=== PATIENT | male | born 1985 ===

== ENCOUNTER 2016-10-28 20:00 | Emergency (ER) | payer BC, OTHER ==
[2016-10-28 20:14] VITALS: BP 145/101
--- NOTE | 2016-10-28 20:50 | EDM.PDOC ---
ED HPI GENERAL MEDICAL PROBLEM - General Chief Complaint: Abdominal Pain Stated Complaint: ABDOMINAL PAINS DIARRHEA Time Seen by Provider: 10/28/16 20:26 Source of Information: Reports: Patient, RN Notes Reviewed History Limitations: Reports: No Limitations - History of Present Illness INITIAL COMMENTS - FREE TEXT/NARRATIVE: The patient states that he was prescribed Augmentin twice a day for 5 days about 3 weeks ago for a possible facial infection, per the [facility]. He developed watery diarrhea on the third day. Since then, his stools have become soft, and less watery. He states that he called the clinic this past Friday, and was told to drink plenty of fluids. That same evening he developed sharp upper abdominal pain, which has been on and off since. He now presents to the ED because of the concern of possible blood in his stool. He states that the stool itself was light colored, but it looked like there was some ground up meat in the stool. He did not have any blood on the toilet paper or in the water. He has had nausea today, but no emesis. No fever. No urinary symptoms. No prior similar symptoms. No one in the patient's household or at work have similar symptoms. No recent spoiled food. No recent travel. The patient does not have a PCP. Abdominal Pain Score (Numeric/FACES): 5 - Related Data Allergies Allergy/AdvReac Type Severity Reaction Status Date / Time No Known Allergies Allergy Verified 10/28/16 20:06 Past Medical History - Past Surgical History GI Surgical History: Reports: Appendectomy Dermatological Surgical History: Reports: Other (See Below) (Dog mauling injuries on the back, repaired) Social & Family History - Tobacco Use Smoking Status *Q: Current Some Day Smoker Years of Tobacco use: 12 Packs/Tins Daily: 0.1 - Caffeine Use Caffeine Use: Reports: Coffee, Energy Drinks - Alcohol Use Alcohol Use History: Yes Alcohol Use Frequency: Socially - Recreational Drug Use Recreational Drug Use: No - Living Situation & Occupation Living situation: Reports: Single, with Family 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) ED ROS GENERAL - Review of Systems Review Of Systems: See Below Constitutional: Reports: No Symptoms HEENT: Reports: No Symptoms Respiratory: Reports: No Symptoms Cardiovascular: Reports: No Symptoms Endocrine: Reports: No Symptoms GI/Abdominal: Reports: No Symptoms : Reports: No Symptoms Musculoskeletal: Reports: No Symptoms Skin: Reports: No Symptoms Neurological: Reports: No Symptoms Psychiatric: Reports: No Symptoms Hematologic/Lymphatic: Reports: No Symptoms Immunologic: Reports: No Symptoms ED EXAM, GI/ABD - Physical Exam Exam: See Below Exam Limited By: No Limitations General Appearance: Alert, WD/WN, No Apparent Distress Eyes: Bilateral: Normal Appearance, EOMI Ears: Normal External Exam, Hearing Grossly Normal, Normal TMs Nose: Normal Inspection, No Blood Throat/Mouth: Normal Inspection, Normal Lips, Normal Voice, No Airway Compromise Head: Atraumatic, Normocephalic Neck: Normal Inspection, Full Range of Motion Respiratory/Chest: No Respiratory Distress, Lungs Clear, Normal Breath Sounds, No Accessory Muscle Use Cardiovascular: Normal Peripheral Pulses, Regular Rate, Rhythm, No Edema, No Gallop, No JVD, No Murmur, No Rub GI/Abdominal: Normal Bowel Sounds, Soft, Non-Tender, No Organomegaly, No Distention, No Abnormal Bruit, No Mass (Male) Exam: Deferred Rectal (Males) Exam: Normal Exam, Normal Rectal Tone, Prostate Normal, Heme - Stool Back Exam: Normal Inspection, Full Range of Motion, NT Extremities: Normal Inspection, Normal Range of Motion, No Pedal Edema, Normal Capillary Refill Neurological: Alert, Oriented, Normal Cognition, No Motor/Sensory Deficits Psychiatric: Normal Affect Skin Exam: Warm, Dry, Intact, Normal Color, No Rash Lymphatic: No Adenopathy Course - Vital Signs Last Recorded V/S: Last Vital Signs Temp 37.4 C 10/28/16 20:07 Pulse 93 10/28/16 20:07 Resp 16 10/28/16 20:07 BP 145/101 H 10/28/16 20:07 Pulse Ox 97 10/28/16 20:07 - Re-Assessments/Exams Free Text/Narrative Re-Assessment/Exam: 10/28/16 20:45 The patient has soft stools, not diarrhea, therefore C. difficile is not a possibility. He is heme-negative on rectal examination. His symptoms may be due to his diet, stress or anxiety, or potentially other gastroenterologic etiologies. I am recommending that if his symptoms persist, that he follow-up with Dr. Sky to arrange for a colonoscopy. Departure - Departure Time of Disposition: 20:47 Disposition: Home, Self-Care 01 Condition: Good Clinical Impression: Loose bowel movements, Abdominal cramps - Discharge Information Instructions: Diarrhea, Adult Referrals: PCP,None [Primary Care Provider] - Marilyn Sky MD [Physician] - Forms: ED Department Discharge Additional Instructions: You were seen in the emergency room for loose bowel movements for the past 3 weeks, abdominal cramps, and a concern of possible blood in your stool today. On examination, there is no blood in your stool. Your loose bowel movements and abdominal pain may be due to an overactive colon. You may take [id number] loperamide (Imodium), 2 tablets initially, then 1 tablet after each loose bowel movement, to a maximum of 8 tablets within a 24- hour period. Consider increasing fiber in your diet. Stay well hydrated. If your symptoms persist, please follow-up with the surgeon Dr. Marilyn Sky for a possible colonoscopy. If any other problems, please do not hesitate to return to the ER.
== END 2016-10-28 21:15 | disposition home or self-care (01) ==
LOC: JD.ED 20:00
DX: R19.7 Diarrhea, unspecified (principal); F17.210 Nicotine dependence, cigarettes, uncomplicated; Z90.49 Acquired absence of other specified parts of digestive tract
CPT/HCPCS: 99282; 99284

== ENCOUNTER 2016-11-02 06:05 | Emergency (ER) | payer BC, OTHER ==
[2016-11-02] MEDS ORDERED: Sodium Chloride 0.9% 1,000 ML IV SCH (07:15)
--- NOTE | 2016-11-02 07:35 | EDM.PDOC ---
ED HPI GENERAL MEDICAL PROBLEM - General Chief Complaint: Abdominal Pain Stated Complaint: STOMACH PAIN Time Seen by Provider: 11/02/16 07:00 Source of Information: Reports: Patient, RN Notes Reviewed History Limitations: Reports: No Limitations - History of Present Illness INITIAL COMMENTS - FREE TEXT/NARRATIVE: The patient was seen by me in this ED on 10/28/2016 with a complaint of diarrhea after starting Augmentin, and a concern of possible blood in his stool, which turned out to be negative. He states that he took Imodium, and his symptoms resolved yesterday, however, he now presents with left-sided abdominal pain since yesterday afternoon. It is burning/crampy in character. It has been waxing and waning. It may have improved slightly after having a bowel movement. No urinary symptoms. No recent fever. No prior similar symptoms. The patient does not have a PCP. Left Lower Abdomen Pain Score (Numeric/FACES): 6 - Related Data Allergies Allergy/AdvReac Type Severity Reaction Status Date / Time No Known Allergies Allergy Verified 10/28/16 20:06 Home Meds: Home Meds . [No Known Home Meds] 11/02/16 [History] Past Medical History - Past Surgical History GI Surgical History: Reports: Appendectomy Dermatological Surgical History: Reports: Plastic Surgical Reconstruction/ Repair (Dog mauling injuries on the back, repaired) Social & Family History - Tobacco Use Years of Tobacco use: 12 Packs/Tins Daily: 0.1 - Caffeine Use Caffeine Use: Reports: Coffee, Energy Drinks - Alcohol Use Alcohol Use History: Yes Days Per Week of Alcohol Use: 2 Number of Drinks Per Day: 3 Total Drinks Per Week: 6 Alcohol Use Frequency: Socially - Recreational Drug Use Recreational Drug Use: No - Living Situation & Occupation Living situation: Reports: Single, with Family 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 Denies: Dysuria Musculoskeletal: Reports: No Symptoms Skin: Reports: No Symptoms Neurological: Reports: No Symptoms Psychiatric: Reports: No Symptoms Hematologic/Lymphatic: Reports: No Symptoms Immunologic: Reports: No Symptoms ED EXAM, GI/ABD - Physical Exam Exam: See Below Exam Limited By: No Limitations General Appearance: Alert, WD/WN, No Apparent Distress Eyes: Bilateral: Normal Appearance, EOMI Ears: Normal External Exam, Hearing Grossly Normal Nose: Normal Inspection, No Blood Throat/Mouth: Normal Inspection, Normal Lips, Normal Voice, No Airway Compromise Head: Atraumatic, Normocephalic Neck: Normal Inspection, Full Range of Motion Respiratory/Chest: No Respiratory Distress, Lungs Clear, Normal Breath Sounds, No Accessory Muscle Use Cardiovascular: Normal Peripheral Pulses, Regular Rate, Rhythm, No Gallop, No JVD, No Murmur, No Rub GI/Abdominal: Normal Bowel Sounds, Soft, No Organomegaly, No Distention, No Abnormal Bruit, No Mass, Tenderness (Left lower quadrant only. Nontender elsewhere.), Other (Obese) (Male) Exam: Deferred Rectal (Males) Exam: Deferred Back Exam: Normal Inspection, Full Range of Motion. No: CVA Tenderness (L), CVA Tenderness (R) Extremities: Normal Inspection, Normal Range of Motion, No Pedal Edema, Normal Capillary Refill Neurological: Alert, Oriented, Normal Cognition, No Motor/Sensory Deficits Psychiatric: Normal Affect Skin Exam: Warm, Dry, Intact, Normal Color, No Rash Lymphatic: No Adenopathy Course - Vital Signs Last Recorded V/S: Last Vital Signs Temp 36.8 C 11/02/16 06:11 Pulse 86 11/02/16 06:11 Resp 16 11/02/16 06:11 BP 140/89 11/02/16 06:11 Pulse Ox 98 11/02/16 06:11 - Orders/Labs/Meds Orders: Active Orders 24 hr Category Date Time Status Sodium Chloride 0.9% [Normal Saline] 1,000 ml Med 11/02/16 07:15 Active IV ASDIRECTED Sodium Chloride 0.9% [Saline Flush] Med 11/02/16 08:33 Active 10 ml FLUSH ONETIME PRN Medication Orders Sodium Chloride (Normal Saline) 1,000 mls @ 150 mls/hr IV ASDIRECTED LACHO Last Admin: 11/02/16 07:29 Dose: 150 mls/hr Sodium Chloride (Saline Flush) 10 ml FLUSH ONETIME PRN PRN Reason: Keep Vein Open Last Admin: 11/02/16 08:45 Dose: 10 ml Labs: Laboratory Tests 11/02/16 11/02/16 11/02/16 Range/Units 06:27 06:27 06:57 WBC 7.62 (4.23-9.07) K/mm3 RBC 5.18 (4.63-6.08) M/mm3 Hgb 15.5 (13.7-17.5) gm/L Hct 43.6 (40.1-51.0) % MCV 84.2 (79.0-92.2) fl MCH 29.9 (25.7-32.2) pg MCHC 35.6 H (32.2-35.5) g/dl RDW Std Deviation 38.8 (35.1-43.9) fL Plt Count 253 (163-337) K/mm3 MPV 10.1 (9.4-12.3) fl Neut % (Auto) 64.3 (34.0-67.9) % Lymph % (Auto) 22.0 (21.8-53.1) % [place] % (Auto) 8.3 (5.3-12.2) % Eos % (Auto) 4.2 (0.8-7.0) Baso % (Auto) 0.9 (0.1-1.2) % Neut # (Auto) 4.90 (1.78-5.38) K/mm3 Lymph # (Auto) 1.68 (1.32-3.57) K/mm3 [place] # (Auto) 0.63 (0.30-0.82) K/mm3 Eos # (Auto) 0.32 (0.04-0.54) K/mm3 Baso # (Auto) 0.07 (0.01-0.08) K/mm3 Sodium 142 (136-145) mEq/L Potassium 3.5 (3.5-5.1) mEq/L Chloride 107 (98-107) mEq/L Carbon Dioxide 26 (21-32) mEq/L Anion Gap 12.5 (5-15) BUN 12 (7-18) mg/dL Creatinine 1.0 (0.7-1.3) mg/dL Est Cr Clr Drug Dosing 105.45 mL/min Estimated GFR (MDRD) > 60 (>60) mL/min BUN/Creatinine Ratio 12.0 L (14-18) Glucose 103 (74-106) mg/dL Calcium 9.0 (8.5-10.1) mg/dL Total Bilirubin 0.3 (0.2-1.0) mg/dL AST 17 (15-37) U/L ALT 30 (16-63) U/L Alkaline Phosphatase 61 (46-116) U/L Total Protein 6.9 (6.4-8.2) g/dl Albumin 3.7 (3.4-5.0) g/dl Globulin 3.2 gm/dL Albumin/Globulin Ratio 1.2 (1-2) Lipase (73-393) U/L Urine Color Yellow (Yellow) Urine Appearance Slt cloudy H (Clear) Urine pH 6.0 (5.0-8.0) Ur Specific [place] 1.015 (1.005-1.030) Urine Protein Negative (Negative) Urine Glucose (UA) Negative (Negative) Urine Ketones Negative (Negative) Urine Occult Blood Negative (Negative) Urine Nitrite Negative (Negative) Urine Bilirubin Negative (Negative) Urine Urobilinogen 0.2 (0.2-1.0) Ur Leukocyte Esterase Negative (Negative) Urine RBC 0-5 (0-5) /hpf Urine WBC 0-5 (0-5) /hpf Ur Epithelial Cells 0-5 (0-5) /hpf Urine Bacteria Few (FEW) /hpf Urine Mucus Few (FEW) /hpf // Range/Units 07:27 WBC (4.23-9.07) K/mm3 RBC (4.63-6.08) M/mm3 Hgb (13.7-17.5) gm/L Hct (40.1-51.0) % MCV (79.0-92.2) fl MCH (25.7-32.2) pg MCHC (32.2-35.5) g/dl RDW Std Deviation (35.1-43.9) fL Plt Count (163-337) K/mm3 MPV (9.4-12.3) fl Neut % (Auto) (34.0-67.9) % Lymph % (Auto) (21.8-53.1) % [place] % (Auto) (5.3-12.2) % Eos % (Auto) (0.8-7.0) Baso % (Auto) (0.1-1.2) % Neut # (Auto) (1.78-5.38) K/mm3 Lymph # (Auto) (1.32-3.57) K/mm3 [place] # (Auto) (0.30-0.82) K/mm3 Eos # (Auto) (0.04-0.54) K/mm3 Baso # (Auto) (0.01-0.08) K/mm3 Sodium (136-145) mEq/L Potassium (3.5-5.1) mEq/L Chloride (98-107) mEq/L Carbon Dioxide (21-32) mEq/L Anion Gap (5-15) BUN (7-18) mg/dL Creatinine (0.7-1.3) mg/dL Est Cr Clr Drug Dosing mL/min Estimated GFR (MDRD) (>60) mL/min BUN/Creatinine Ratio (14-18) Glucose (74-106) mg/dL Calcium (8.5-10.1) mg/dL Total Bilirubin (0.2-1.0) mg/dL AST (15-37) U/L ALT (16-63) U/L Alkaline Phosphatase (46-116) U/L Total Protein (6.4-8.2) g/dl Albumin (3.4-5.0) g/dl Globulin gm/dL Albumin/Globulin Ratio (1-2) Lipase 133 (73-393) U/L Urine Color (Yellow) Urine Appearance (Clear) Urine pH (5.0-8.0) Ur Specific [place] (1.005-1.030) Urine Protein (Negative) Urine Glucose (UA) (Negative) Urine Ketones (Negative) Urine Occult Blood (Negative) Urine Nitrite (Negative) Urine Bilirubin (Negative) Urine Urobilinogen (0.2-1.0) Ur Leukocyte Esterase (Negative) Urine RBC (0-5) /hpf Urine WBC (0-5) /hpf Ur Epithelial Cells (0-5) /hpf Urine Bacteria (FEW) /hpf Urine Mucus (FEW) /hpf Meds: Medications Generic Name Dose Route Start Last Admin Trade Name Freq PRN Reason Stop Dose Admin Sodium Chloride 1,000 mls @ 150 mls/hr 11/02/16 07:15 11/02/16 07:29 Normal Saline IV 150 mls/hr ASDIRECTED LACHO Administration Sodium Chloride 10 ml 11/02/16 08:33 11/02/16 08:45 Saline Flush FLUSH 10 ml ONETIME PRN Administration Keep Vein Open Discontinued Medications Generic Name Dose Route Start Last Admin Trade Name Marie PRN Reason Stop Dose Admin Diatrizoate Meglum/Diatrizoate Sod 90 ml 11/02/16 08:33 11/02/16 08:45 Gastrografin 37% PO 11/02/16 08:34 90 ml ONETIME ONE Administration Iopamidol 125 ml 11/02/16 08:33 11/02/16 08:45 Isovue-300 (61%) IVPUSH 11/02/16 08:34 125 ml ONETIME ONE Administration - Radiology Interpretation Free Text/Narrative:: CT of the abdomen and pelvis with oral and IV contrast is read by Dr. Hassan as: 1. Diffuse inflammatory change around the cecum with bowel wall thickening also noted within the cecum. Appendix not visualized. Please correlate if appendix not seen due to prior appendectomy otherwise inflammatory change within the cecum includes appendicitis. Differential more likely represents typhlitis. Inflammatory bowel disease felt less likely as there is no significant bowel wall thickening within the terminal ileum. Several mildly prominent lymph nodes within the right lower abdomen most likely reactive from the cecal process. 2. Nonspecific enlargement of the spleen with length of 15.1 cm. 3. No additional abnormality is identified on CT study of the abdomen and pelvis. - Re-Assessments/Exams Free Text/Narrative Re-Assessment/Exam: 11/02/16 09:[address] Sky at 09:50. She is recommending that we discharge the patient home on no medications at this time, and that he follow-up in her clinic this coming Friday or Friday, to arrange for colonoscopy. 11/02/16 09:59 Test results discussed with the patient, and all questions answered. Today's CT findings do not explain why the patient has left lower quadrant abdominal pain and tenderness, but perhaps the colonoscopy can find an etiology. Departure - Departure Time of Disposition: 09:59 Disposition: Home, Self-Care 01 Condition: Good Clinical Impression: Acute cecitis - Discharge Information Referrals: PCP,None [Primary Care Provider] - Marilyn Sky MD [Physician] - Forms: ED Department Discharge Additional Instructions: You were seen in the emergency room for lower left abdominal pain. Workup in the ER included blood work, a urinalysis, and a CT scan of your abdomen and pelvis. The blood work and urine were normal. The CT scan found inflammation of the first part of your colon, known as the cecum. The cause of your cecal inflammation is not known. Please follow-up with the surgeon Dr. Marilyn Sky at the next available appointment, in order to arrange for a colonoscopy. If any other problems, please do not hesitate to return to the ER. - My Orders Last 24 Hours: My Active Orders 11/02/16 07:15 Sodium Chloride 0.9% [Normal Saline] 1,000 ml IV ASDIRECTED 11/02/16 08:33 Sodium Chloride 0.9% [Saline Flush] 10 ml FLUSH ONETIME PRN - Assessment/Plan Last 24 Hours: My Active Orders 11/02/16 07:15 Sodium Chloride 0.9% [Normal Saline] 1,000 ml IV ASDIRECTED 11/02/16 08:33 Sodium Chloride 0.9% [Saline Flush] 10 ml FLUSH ONETIME PRN
[2016-11-02] MEDS ORDERED: Sodium Chloride 0.9% 10 ML Syringe FLUSH PRN (08:33)
[2016-11-02] MEDS ORDERED: Iopamidol 612 MG/ML 150 ML Bottle IVPUSH ONE (08:33)
[2016-11-02] MEDS ORDERED: Diatrizoate Meglumine/Diatrizoate Sodium 37% 120 ML Bottle PO ONE (08:33)
--- NOTE | 2016-11-02 09:10 | CT ---
CT abdomen and pelvis Technique: Multiple axial sections were obtained from above the dome of the diaphragm inferiorly through the pubic symphysis. Intravenous and oral contrast has been given. Delayed were also obtained through the bladder. Findings: Inflammatory change is seen around the cecum. There is colonic wall thickening seen within the cecum. Several mildly enlarged lymph nodes are noted within the right lower abdomen likely reactive and due to the cecal process. Appendix is not visualized. Terminal ileum shows no wall thickening. Visualized lung bases are clear. Liver shows no focal parenchymal abnormality. Spleen is mildly enlarged with length of 15.1 cm which is nonspecific. Adrenal glands show no nodule. Kidneys show symmetric contrast enhancement without hydronephrosis or mass. Pancreas is within normal limits. Aorta shows no aneurysmal dilatation. No retroperitoneal adenopathy or mesenteric abnormalities are seen. No pelvic mass or adenopathy is identified. Shows contrast within the distal ureters and bladder. Bone window settings were reviewed which appears within normal limits for the patient's age. Impression: 1. Diffuse inflammatory change around the cecum with bowel wall thickening also noted within the cecum. Appendix not visualized. Please correlate if appendix not seen due to prior appendectomy otherwise the inflammatory change within the cecum includes appendicitis. Differential more likely represents typhlitis. Inflammatory bowel disease felt less likely as there is no significant bowel wall thickening within the terminal ileum. Several mildly prominent lymph nodes within the right lower abdomen most likely reactive from the cecal process. 2. Nonspecific enlargement of the spleen with length of 15.1 cm. 3. No additional abnormality is identified on CT study of the abdomen and pelvis. Diagnostic code #3
[2016-11-02 10:47] VITALS: BP 138/82
== END 2016-11-02 10:35 | disposition home or self-care (01) ==
LOC: JD.ED 06:05
DX: K52.9 Noninfective gastroenteritis and colitis, unspecified (principal); Z90.49 Acquired absence of other specified parts of digestive tract
CPT/HCPCS: 36415; 74177; 80053; 81001; 83690; 85025; 96360; 96361; 99284; J7040; J7050; Q9963; Q9967